=== PATIENT | male | born 1965 | race Caucasian/White ===

== ENCOUNTER 2023-11-09 08:30 | Emergency (ER) | payer MEDICAID ==
[~2023-11-09] VITALS: Wt 81.6 kg
[2023-11-09] MEDS ORDERED: SODIUM CHLORIDE 0.9% 1,000 ML IV ONE (08:55)
[2023-11-09] MEDS ORDERED: Motrin,Rufen800 MG PO (09:01)
[2023-11-09] MEDS ORDERED: Ceftriaxone Sodium 1 GM/10 ML SYR IV ONE (09:35)
[2023-11-09] MEDS ORDERED: AZITHROMYCIN 250 ML IV ONE (09:40)
[2023-11-09 10:10] LABS: MEAN CELL VOLUME 70.4 fl (80.0-94.0); MEAN CORPUSCULAR HGB 19.6 pg (27.0-31.0); MEAN CORPUSCULAR HGB CONC 27.8 g/dl (33.0-37.0); MEAN PLATELET VOLUME 9.2 fl (9.6-12.3); PLATELET COUNT AUTOMATED 265 10*3/uL (130-400); RED CELL DISTRI WIDTH 21.4 % (0-14.5); WHITE BLOOD COUNT 17.5 10*3/uL (4.8-10.8)
[2023-11-09 10:13] LABS: HEMATOCRIT 16.2 % (42.0-52.0); MANUAL DIFF REFLEX YES
[2023-11-09 10:19] LABS: ACT PARTIAL THROMBO TIME 37.3 SECONDS (20.0-32.1)
[2023-11-09 10:30] LABS: ALKALINE PHOSPHATASE 99 U/L (46-116); BUN 138 mg/dl (9-23); CHLORIDE 105 mmol/L (98-107); LIPASE 20 U/L (12-53); SGPT/ALT 146 U/L (5-49); TOTAL PROTEIN 6.3 gm/dL (6.0-8.0)
[2023-11-09 10:39] LABS: MICROCYTOSIS MODERATE; PLATELET SUFFICIENCY NORMAL (NORMAL); POLYCHROMASIA SLIGHT; TOTAL CELLS COUNTED 100 #CELLS
[2023-11-09 10:40] LABS: ETHYL ALCOHOL < 3.0 mg/dl (<3)
[2023-11-09 10:44] LABS: POTASSIUM 7.9 mmol/L (3.4-5.1)
[2023-11-09] MEDS ORDERED: CALCIUM GLUC IN NACL, ISO-OSM 100 ML IV ONE (10:45)
[2023-11-09] MEDS ORDERED: DEXTROSE 50% 25 GM/50 ML SYR IV ONE (10:50)
[2023-11-09] MEDS ORDERED: INSULIN REGULAR, HUMAN 1 UNIT/0.01 ML IV ONE (10:50)
[2023-11-09] MEDS ORDERED: Vancomycin Hydrochloride 250 ML IV ONE (10:50)
[2023-11-09] MEDS ORDERED: SODIUM BICARBONATE 50 MEQ/50 ML VIAL IV ONE (10:50)
[2023-11-09] MEDS ORDERED: SODIUM POLYSTYRENE SULFONATE 15 GM/60 ML BOT PO ONE (10:50)
[2023-11-09] MEDS ORDERED: Albuterol Sulf/Ipratropium 3 ML VIAL NEB ONE (11:00)
[2023-11-09] MEDS ORDERED: SODIUM CHLORIDE 0.9% 500 ML IV ONE (11:53)
[2023-11-09 17:39] LABS: CHLORIDE 107 mmol/L (98-107)
[2023-11-09 17:40] LABS: BUN 99 mg/dl (9-23)
[2023-11-09 17:42] LABS: POTASSIUM 7.2 mmol/L (3.4-5.1)
== END 2023-11-09 17:42 | disposition short-term general hospital (02) ==
LOC: ED 08:30
PROVIDERS: Emergency Medicine; Internal Medicine
DX: J96.90 Respiratory failure, unspecified, unspecified whether with hypoxia or hypercapnia (principal); N17.9 Acute kidney failure, unspecified; E87.5 Hyperkalemia; J18.9 Pneumonia, unspecified organism; D64.9 Anemia, unspecified; N39.0 Urinary tract infection, site not specified; Z79.899 Other long term (current) drug therapy